=== PATIENT | female | born 1980 | race Caucasian/White ===

== ENCOUNTER 2023-06-18 09:59 | Outpatient (OUT) | payer OTHER, SELFPAY ==
--- NOTE | 2023-06-18 10:07 | MM_ITS ---
Patient Name: DUSTIN FERRARI MR#: [id number] : 1980 Exam Date: 06/18/2023 Ordering Doctor: DR. Georgiana Powell D.O. RADIOLOGY REPORT PROCEDURE: MM TOMOSYNTHESIS SCREENING BI COMPARISON: None. INDICATIONS: Screening Calculator Name NCI Breast Cancer Risk Assessment Tool 5 Year Breast Cancer Risk Not Reported. Lifetime Breast Cancer Risk Not Reported. Personal Breast Cancer No Personal Ovarian Cancer No Treatments None Family Cancers None LOCATION: [facility] BREAST COMPOSITION: Scattered areas fibroglandular density. FINDINGS: DIAGNOSTIC CATEGORY 0--INCOMPLETE: NEED ADDITIONAL IMAGING EVALUATION. Scattered benign-appearing lymph nodes are present. RIGHT BREAST: No significant suspicious finding. LEFT BREAST: Focal area of nodular asymmetry identified in the lower inner quadrant, mid breast. Spot compression and ultrasound follow-up is recommended. RECOMMENDATIONS: ADDITIONAL MAMMOGRAPHIC VIEWS REQUIRED: LEFT BREAST - spot compression ULTRASOUND: LEFT BREAST PLEASE NOTE: A NORMAL MAMMOGRAM DOES NOT EXCLUDE THE POSSIBILITY OF BREAST CANCER. A CLINICALLY SUSPICIOUS PALPABLE LUMP SHOULD BE BIOPSIED. Dictated by: Karlo David MD on 06/18/2023 at 12:30 Approved by: Karlo David MD on 06/18/2023 at 12:32
== END 2023-06-18 10:00 | disposition home or self-care (01) ==
LOC: MAMMO 10:03
PROVIDERS: PCP Family Medicine; Visit Provider Family Medicine
DX: Z12.31 Encounter for screening mammogram for malignant neoplasm of breast (principal); N63.24 Unspecified lump in the left breast, lower inner quadrant
CPT/HCPCS: 77063; 77067

== ENCOUNTER 2023-07-03 07:43 | Outpatient (OUT) | payer OTHER, SELFPAY ==
--- NOTE | 2023-07-03 07:47 | MM_ITS ---
Patient Name: DUSTIN FERRARI MR#: [id number] : 1980 Exam Date: 07/03/2023 Ordering Doctor: DR. Georgiana Powell D.O. RADIOLOGY REPORT PROCEDURE: MM DIAGNOSTIC MAMMO UNILAT LT, 07/03/2023, 06:55 US BREAST LT LIMITED, 07/03/2023, 08:05 COMPARISON: MM TOMOSYNTHESIS SCREENING BI, 06/18/2023. INDICATIONS: Abnormal Mammogram Calculator Name NCI Breast Cancer Risk Assessment Tool 5 Year Breast Cancer Risk Not Reported. Lifetime Breast Cancer Risk Not Reported. Personal Breast Cancer No Personal Ovarian Cancer No Treatments None Family Cancers None LOCATION: [facility] BREAST COMPOSITION: Scattered areas fibroglandular density. FINDINGS: DIAGNOSTIC CATEGORY 3--PROBABLY BENIGN FINDING. THE FOLLOWING FINDING(S) HAS A HIGH PROBABILITY OF A BENIGN ETIOLOGY: LEFT BREAST: Spot magnification views demonstrate persistence of lobular opacities within the anterior lower-inner quadrant. Ultrasound evaluation demonstrates a collection of small anechoic cysts at the 6 o'clock position 2.5 cm from the nipple. No overtly suspicious findings. Follow-up mammography and ultrasound evaluation of left breast in 6 months is recommended to document stability and to help establish baseline. RECOMMENDATIONS: SHORT TERM FOLLOW-UP DIAGNOSTIC MAMMOGRAM LEFT BREAST IN 6 MONTHS. SHORT TERM FOLLOW-UP ULTRASOUND LEFT BREAST IN 6 MONTHS. PLEASE NOTE: A NORMAL MAMMOGRAM DOES NOT EXCLUDE THE POSSIBILITY OF BREAST CANCER. A CLINICALLY SUSPICIOUS PALPABLE LUMP SHOULD BE BIOPSIED. Dictated by: Wero Abrams M.D. on 07/03/2023 at 08:43 Approved by: Wero Abrams M.D. on 07/03/2023 at 09:20
== END 2023-07-03 07:44 | disposition home or self-care (01) ==
LOC: MAMMO 07:43
PROVIDERS: PCP Family Medicine; Visit Provider Family Medicine
DX: R92.8 Other abnormal and inconclusive findings on diagnostic imaging of breast (principal)
CPT/HCPCS: 76642; 77065

== ENCOUNTER 2023-10-24 18:40 | Outpatient (REF) | payer OTHER, SELFPAY ==
--- OUTSIDE RECORDS SUMMARY | 2023-10-24 18:45 | XMS_ITS ---
Author Name Auto Generated Organization [facility] Care Team Providers Care Watch Crystal Molder Name Role Phone MARILEE ARAGON Attending Unavailable PROBLEMS No Problem Records Found PROCEDURES No Procedure Records Found RESULTS No Result Records Found ALLERGIES No Allergies Records Found ENCOUNTERS ADMIT/DISCHARGE ACCOUNT NUMBER ADMITTING ENCOUNTER CLASS LOCATION SOURCE 10/24/2023/ 4 [id number] Ambulatory Building:[facility] [employer] ENCOUNTER GUARANTOR PAYER SUBSCRIBER SOURCE 10/24/2023 DUSTIN LUCIANOB: Bill [facility], [place] [address]Far: () Primary Insurance:[employer] Number: [id number] denise Date:2022-11-05 tr Name:JAQUELINE BINGHAM [id number] LILIA RONQUILLO [id number]: ELIESER GILLESPIE: [id number] [place] [address] [facility] EPIC
[2023-10-29 12:11] LABS: Age Gdln ACOG Testing Note (.); HPV Aptima Negative (Negative); IGP, Aptima HPV, rfx 16/18,45 Note (.)
== END 2023-10-24 18:41 | disposition home or self-care (01) ==
LOC: LAB 18:40
PROVIDERS: PCP Family Medicine; Visit Provider Obstetrics & Gynecology
DX: Z01.419 Encounter for gynecological examination (general) (routine) without abnormal findings (principal)
CPT/HCPCS: 87624; 88175